=== PATIENT | male | born 1955 | race Caucasian/White ===

== ENCOUNTER → 2018-05-06 | Outpatient (REF) | LOC: ZLAB.WCH 18:18 | DX: Z01.89 Encounter for other specified special examinations (principal) | CPT/HCPCS: G0103 ==

== ENCOUNTER → 2021-10-18 | Outpatient (RCR) | payer MEDICARE, BC | END | disposition still patient (30) | LOC: MKS.ESL.PT | DX: M15.9 Polyosteoarthritis, unspecified (principal) ==

== ENCOUNTER → 2021-11-17 | Outpatient (RCR) | payer MEDICARE, BC | END | disposition still patient (30) | LOC: MKS.ESL.PT | DX: M47.9 Spondylosis, unspecified (principal) ==

== ENCOUNTER 2021-11-29 14:11 | Outpatient (RCR) | payer MEDICARE, BC | END 2021-11-29 14:12 | disposition home or self-care (01) | LOC: MKS.ESL.PT 14:11 | DX: M15.9 Polyosteoarthritis, unspecified (principal) ==